=== PATIENT | male | born 1985 | race Caucasian/White ===

== ENCOUNTER 2017-04-13 16:26 | Emergency (ER) | payer SELFPAY ==
[2017-04-13 16:42] VITALS: BP 132/83
--- NOTE | 2017-04-13 18:07 | EDM.PDOC ---
ED HPI GENERAL MEDICAL PROBLEM - General Chief Complaint: ENT Problem Stated Complaint: SEVERE TOOTH PAIN Time Seen by Provider: 04/13/17 18:01 Source of Information: Reports: Patient History Limitations: Reports: No Limitations - History of Present Illness INITIAL COMMENTS - FREE TEXT/NARRATIVE: 32-year-old male in for dental pain on the left maxilla. This is a chronic recurring problem for him, he has a dental evaluation and is going to have it taken care of in 3 weeks when he gets a paycheck to pay for his out standing bill. He is currently on amoxicillin and taking Tylenol 3 as needed but not getting a lot of relief. No fevers, no swelling. I reviewed his history on the [employer], it does correlate with his own history per the patient. He has recently started a [employer] job where he is making good money and he can finally get this taken care of. He was told by the dentist to come to the emergency room for stronger pain medicine. Onset: Other (This problem has been present for months, waxes and wanes) - Related Data Allergies Allergy/AdvReac Type Severity Reaction Status Date / Time No Known Allergies Allergy Verified 04/13/17 17:06 Home Meds: Home Meds Acetaminophen [Tylenol] 650 mg PO ASDIRECTED 06/03/16 [History] Ibuprofen 400 mg PO TID 06/03/16 [History] traMADol [Ultram] 1 tab PO ASDIRECTED 08/31/16 [History] Acetaminophen with Codeine [Tylenol with Codeine #3 Tablet] 1 tab PO QID [History] Amoxicillin 500 mg PO BID 04/13/17 [History] Past Medical History - Past Health History Medical/Surgical History: Denies Medical/Surgical History - Infectious Disease History Infectious Disease History: Reports: Chicken Pox Social & Family History - Tobacco Use Smoking Status *Q: Current Some Day Smoker Years of Tobacco use: 0 Packs/Tins Daily: 0 Used Tobacco, but Quit: No Second Hand Smoke Exposure: No - Alcohol Use Days Per Week of Alcohol Use: 0 - Recreational Drug Use Recreational Drug Use: No ED ROS ENT - Review of Systems Review Of Systems: See Below Constitutional: Denies: Fever HEENT: Reports: Dental Pain Respiratory: Denies: Shortness of Breath GI/Abdominal: Denies: Nausea, Vomiting Neurological: Reports: No Symptoms Psychiatric: Reports: No Symptoms ED EXAM, ENT - Physical Exam Exam: See Below Exam Limited By: No Limitations General Appearance: Alert, No Apparent Distress (Patient looks uncomfortable but not distressed) Mouth/Throat: Other (He has a deep caries between the second and third molar of the left maxilla, it is tender to percussion but no significant inflammation is present) Respiratory/Chest: No Respiratory Distress Neurological: Alert, Oriented Psychiatric: Flat Affect Skin: Warm, Dry Course - Vital Signs Last Recorded V/S: Last Vital Signs Temp 98.2 F 04/13/17 17:10 Pulse 71 04/13/17 17:10 Resp 16 04/13/17 17:10 BP 132/83 04/13/17 17:10 Pulse Ox 98 04/13/17 17:10 - Re-Assessments/Exams Free Text/Narrative Re-Assessment/Exam: 04/13/17 18:20 Had a long discussion with the patient about treatment and expectations. He has several days of amoxicillin left, I'm going to provide 10 more additional days of penicillin so he remains covered until his appointment. We are also going to try a tapering prednisone course starting with 40 mg daily, and I gave him 20 hydrocodone to use for breakthrough pain. He understands he needs to make this last if possible to his appointment. Departure - Departure Time of Disposition: 18:39 Disposition: Home, Self-Care 01 Condition: Good Clinical Impression: Chronic dental pain - Discharge Information Instructions: Dental Caries, [id number] Referrals: PCP,None [Primary Care Provider] - Forms: ED Department Discharge Care Plan Goals: Take prednisone as prescribed once daily with your first meal of the day. Continue antibiotics and use hydrocodone for breakthrough significant pain if needed. Do not take Tylenol with codeine and hydrocodone together. You can continue with anti-inflammatories such as ibuprofen or naproxen, it should help.
== END 2017-04-13 18:52 | disposition home or self-care (01) ==
LOC: JP.ED 16:26
DX: K08.89 Other specified disorders of teeth and supporting structures (principal); G89.29 Other chronic pain; F17.200 Nicotine dependence, unspecified, uncomplicated; Z79.899 Other long term (current) drug therapy
CPT/HCPCS: 99283

== ENCOUNTER 2017-05-17 22:00 | Emergency (ER) | payer SELFPAY ==
[2017-05-18 00:01] VITALS: BP 142/78
--- NOTE | 2017-05-18 00:16 | EDM.PDOC ---
ED HPI GENERAL MEDICAL PROBLEM - General Chief Complaint: ENT Problem Stated Complaint: TOOTHACHE Time Seen by Provider: 05/17/17 23:59 Source of Information: Reports: Patient, Old Records, RN Notes Reviewed History Limitations: Reports: No Limitations - History of Present Illness INITIAL COMMENTS - FREE TEXT/NARRATIVE: Chief complaint Dental pain 32-year-old male who's had a total pain left upper molar for several months. He has an extraction scheduled for June 01 Pain is bothering him again tonight so he is coming in seeking pain medication Multiple visits to emergency for the same Treatments [employer]ELOPER: Reports: Acetaminophen, Other (see below) Other Treatments [employer] DEVELOPER: Ibuprofen Left Oral/Mouth Pain Score (Numeric/FACES): 9 - Related Data Allergies Allergy/AdvReac Type Severity Reaction Status Date / Time No Known Allergies Allergy Verified 05/17/17 23:57 Home Meds: Home Meds Acetaminophen [Tylenol] 650 mg PO ASDIRECTED 06/03/16 [History] Ibuprofen 400 mg PO TID 06/03/16 [History] Amoxicillin 500 mg PO BID 04/13/17 [History] Hydrocodone/Acetaminophen [Hydrocodon-Acetaminophen 5-325] 1 - 2 each PO QID PRN #12 tablet 05/18/17 [Rx] Past Medical History - Past Health History Medical/Surgical History: Denies Medical/Surgical History HEENT History: Reports: Other (See Below) Other HEENT History: chronic dental issues - Infectious Disease History Infectious Disease History: Reports: Chicken Pox Social & Family History - Tobacco Use Smoking Status *Q: Current Every Day Smoker Years of Tobacco use: 5 Packs/Tins Daily: 0.1 Used Tobacco, but Quit: No Second Hand Smoke Exposure: No - Caffeine Use Caffeine Use: Reports: Coffee - Alcohol Use Days Per Week of Alcohol Use: 0 - Recreational Drug Use Recreational Drug Use: No - Living Situation & Occupation Social History Comment: Going through divorce at present time ED ROS ENT - Review of Systems Review Of Systems: ROS reveals no pertinent complaints other than HPI. Constitutional: Denies: Fever HEENT: Reports: Dental Pain ED EXAM, ENT - Physical Exam Exam: See Below Exam Limited By: No Limitations General Appearance: Alert, Mild Distress Eye Exam: Bilateral Eye: Normal Inspection Ears: Normal External Exam Nose: Normal Inspection Mouth/Throat: Dental Tenderness (Left upper first molar) Head: Atraumatic Neurological: Alert, Oriented Lymphatic: No Adenopathy Course - Vital Signs Text/Narrative:: 32-year-old male with ongoing dental pain Has been on several prescriptions of pain medication and antibiotics Declines dental anesthesia at this time Last Recorded V/S: Last Vital Signs Temp 36.0 C 05/17/17 23:58 Pulse 59 L 05/17/17 23:58 Resp 16 05/17/17 23:58 BP 142/78 H 05/17/17 23:58 Pulse Ox 99 05/17/17 23:58 Departure - Departure Time of Disposition: 00:16 Disposition: Home, Self-Care 01 Condition: Fair Clinical Impression: Chronic dental infection - Discharge Information Prescriptions: Hydrocodone/Acetaminophen [Hydrocodon-Acetaminophen 5-325] 1 - 2 each PO QID PRN #12 tablet PRN Reason: Moderate to severe pain Instructions: Dental Abscess Referrals: PCP,None [Primary Care Provider] - Forms: ED Department Discharge Additional Instructions: Follow-up with dentist as arranged
== END 2017-05-18 00:32 | disposition home or self-care (01) ==
LOC: JP.ED 22:00
DX: K04.7 Periapical abscess without sinus (principal); F17.210 Nicotine dependence, cigarettes, uncomplicated
CPT/HCPCS: 99282; 99283

== ENCOUNTER 2017-05-18 14:41 | Emergency (ER) | payer SELFPAY ==
[2017-05-18 14:54] VITALS: BP 148/90
[2017-05-18] MEDS ORDERED: methylPREDNISolone Sodium Succinate 125 MG/2 ML SDV IM ONE (15:26)
[2017-05-18] MEDS ORDERED: diphenhydrAMINE 50 MG/ML SDV IM ONE (15:27)
--- NOTE | 2017-05-18 15:35 | EDM.PDOC ---
ED HPI GENERAL MEDICAL PROBLEM - General Chief Complaint: Bite:Animal, Insect Stated Complaint: BEE STING RT HAND Time Seen by Provider: 05/18/17 15:27 Source of Information: Reports: Patient History Limitations: Reports: No Limitations - History of Present Illness INITIAL COMMENTS - FREE TEXT/NARRATIVE: pt was stung by a bee on the rt hand and he is not feeling well. He has not been stung in the past. Onset: Today Duration: Hour(s):, Other (pt was stung on the rt hand and is having uncomfortabl pain in the hand. He feels strange like he is having a reaction. ) Location: Reports: Upper Extremity, Right Associated Symptoms: Reports: No Other Symptoms, Other (pt states he just feels strange. ) Right Hand Pain Score (Numeric/FACES): 7 - Related Data Allergies Allergy/AdvReac Type Severity Reaction Status Date / Time No Known Allergies Allergy Verified 05/17/17 23:57 Home Meds: Home Meds Acetaminophen [Tylenol] 650 mg PO ASDIRECTED 06/03/16 [History] Ibuprofen 400 mg PO TID 06/03/16 [History] Hydrocodone/Acetaminophen [Hydrocodon-Acetaminophen 5-325] 1 - 2 each PO QID PRN #12 tablet 05/18/17 [Rx] Past Medical History - Past Health History Medical/Surgical History: Denies Medical/Surgical History HEENT History: Reports: Other (See Below) Other HEENT History: chronic dental issues - Infectious Disease History Infectious Disease History: Reports: Chicken Pox Social & Family History - Tobacco Use Smoking Status *Q: Current Every Day Smoker Years of Tobacco use: 5 Packs/Tins Daily: 0.1 Used Tobacco, but Quit: No Second Hand Smoke Exposure: No - Caffeine Use Caffeine Use: Reports: Coffee - Alcohol Use Days Per Week of Alcohol Use: 0 - Recreational Drug Use Recreational Drug Use: No ED ROS GENERAL - Review of Systems Review Of Systems: See Below Constitutional: Reports: No Symptoms HEENT: Reports: No Symptoms Respiratory: Reports: No Symptoms Cardiovascular: Reports: No Symptoms, Palpitations GI/Abdominal: Reports: No Symptoms : Reports: No Symptoms Neurological: Reports: Other ( feels dizzy and strange since this happened. ) ED EXAM, ANIMAL BITE - Physical Exam Exam: See Below Text/Narrative:: pt has a bee sting on his rt hand and he is having a stinging sensation going up the arm some. Exam Limited By: No Limitations General Appearance: Alert, Anxious, Mild Distress Ears: Normal TMs Nose: Normal Inspection Throat/Mouth: Normal Inspection Head: Atraumatic Neck: Normal Inspection Respiratory/Chest: No Respiratory Distress Cardiovascular: Regular Rate, Rhythm Peripheral Pulses: 0: Brachial (L) Extremities: Other (pt has a sting on his rt hand., He has no hives he has no resp distress. He is complaining of pain in the rt hand traveling up his arm. He states he feels strange. ) Course - Vital Signs Last Recorded V/S: Last Vital Signs Temp 36.9 C 05/18/17 14:53 Pulse 82 05/18/17 14:53 Resp 18 05/18/17 14:53 BP 148/90 H 05/18/17 14:53 Pulse Ox 97 05/18/17 14:53 - Orders/Labs/Meds Meds: Medications Discontinued Medications Generic Name Dose Route Start Last Admin Trade Name Ever PRN Reason Stop Dose Admin Diphenhydramine HCl 50 mg 05/18/17 15:27 05/18/17 15:36 Benadryl IM 05/18/17 15:28 50 mg ONETIME ONE Administration Methylprednisolone Sodium Succinate 125 mg 05/18/17 15:26 05/18/17 15:36 Solu-Medrol IM 05/18/17 15:27 125 mg ONETIME ONE Administration - Re-Assessments/Exams Free Text/Narrative Re-Assessment/Exam: 05/18/17 16:07 Pt was given benadryl 50mg im and solumedrol 125 im. Departure - Departure Time of Disposition: 15:58 Disposition: Home, Self-Care 01 Condition: Fair Clinical Impression: Bee sting reaction - Discharge Information Referrals: PCP,None [Primary Care Provider] - Forms: ED Department Discharge Care Plan Goals: cool pack the hand, benadryl 50mg td for the next 24 hours,
== END 2017-05-18 16:09 | disposition home or self-care (01) ==
LOC: JP.ED 14:41
DX: T63.441A Toxic effect of venom of bees, accidental (unintentional), initial encounter (principal); F17.210 Nicotine dependence, cigarettes, uncomplicated
CPT/HCPCS: 96372; 99283; J1200; J2930

== ENCOUNTER 2018-02-03 09:03 | Emergency (ER) | payer SELFPAY ==
[2018-02-03 09:18] VITALS: BP 147/95
[2018-02-03] MEDS ORDERED: Ketorolac 60 MG/2 ML SDV IM ONE (09:53)
--- NOTE | 2018-02-03 09:56 | EDM.PDOC ---
ED HPI GENERAL MEDICAL PROBLEM - General Chief Complaint: Upper Extremity Injury/Pain Stated Complaint: LT SHOULDER PAIN Time Seen by Provider: 02/03/18 09:56 Source of Information: Reports: Patient History Limitations: Reports: No Limitations - History of Present Illness INITIAL COMMENTS - FREE TEXT/NARRATIVE: pt arrived with pain the left shoulder and he is having trouble lifting his arm. Onset: Gradual, Other ( This has been going on for at least 1 week. ) Duration: Hour(s):, Day(s): Location: Reports: Upper Extremity, Left Associated Symptoms: Reports: No Other Symptoms Left Shoulder Pain Score (Numeric/FACES): 8 - Related Data Allergies Allergy/AdvReac Type Severity Reaction Status Date / Time No Known Allergies Allergy Verified 05/17/17 23:57 Home Meds: Home Meds Acetaminophen [Tylenol] 650 mg PO ASDIRECTED 06/03/16 [History] Ibuprofen 400 mg PO TID 06/03/16 [History] Hydrocodone/Acetaminophen [Hydrocodon-Acetaminophen 5-325] 1 - 2 each PO QID PRN #12 tablet 05/18/17 [Rx] Past Medical History - Past Health History Medical/Surgical History: Denies Medical/Surgical History HEENT History: Reports: Other (See Below) Other HEENT History: chronic dental issues - Infectious Disease History Infectious Disease History: Reports: Chicken Pox Social & Family History - Tobacco Use Smoking Status *Q: Current Every Day Smoker Years of Tobacco use: 5 Packs/Tins Daily: 0.1 Used Tobacco, but Quit: No Second Hand Smoke Exposure: No - Caffeine Use Caffeine Use: Reports: Coffee - Alcohol Use Days Per Week of Alcohol Use: 0 - Recreational Drug Use Recreational Drug Use: No Review of Systems - Review of Systems Review Of Systems: See Below Eyes: Reports: No Symptoms Ears: Reports: No Symptoms Nose: Reports: No Symptoms Mouth/Throat: Reports: No Symptoms Respiratory: Reports: No Symptoms Cardiovascular: Reports: No Symptoms GI/Abdominal: Reports: No Symptoms Genitourinary: Reports: No Symptoms Musculoskeletal: Reports: Shoulder Pain (pt has pain in the left shouldwer and is having alot of discomfort when he does go to lift the arm/ ), Other ED EXAM, GENERAL - Physical Exam Exam: See Below Free Text/Narrative:: Pt has pain in the left shoulder. He did not injure it. This just came on . He is having difficulty lifting his arm. Exam Limited By: No Limitations General Appearance: Alert Extremities: Normal Inspection, Other (pt is tender to elevate the arm. He may be over protecting the shoulder. ) Course - Vital Signs Last Recorded V/S: Last Vital Signs Temp 36.6 C 02/03/18 09:16 Pulse 120 H 02/03/18 09:16 Resp 18 02/03/18 09:16 BP 147/95 H 02/03/18 09:16 Pulse Ox 99 02/03/18 09:16 - Orders/Labs/Meds Meds: Medications Discontinued Medications Generic Name Dose Route Start Last Admin Trade Name Ever PRN Reason Stop Dose Admin Ketorolac Tromethamine 60 mg 02/03/18 09:53 02/03/18 10:08 Toradol IM 02/03/18 09:54 60 mg ONETIME ONE Administration - Re-Assessments/Exams Free Text/Narrative Re-Assessment/Exam: 02/03/18 10:58 xray was obtained which did not reveal any sig abnormalities. He was given torodol 60mg im. Departure - Departure Time of Disposition: 10:47 Disposition: Home, Self-Care 01 Condition: Fair Clinical Impression: Tendonitis of shoulder, left - Discharge Information Instructions: Tendinitis Referrals: Tiffany Oseguera PA [Primary Care Provider] - Forms: ED Department Discharge Care Plan Goals: moist warm packs to the shoulder, do range of motion, ortho referal for next few days, naprosyn 500mg tid unti he sees ortho. pt did leave without getting instructions will call regarding the appt and perscription
--- NOTE | 2018-02-03 10:41 | CR ---
Shoulder Comp Lt HISTORY: Pain COMPARISON: None FINDINGS: No fracture or dislocation. No acute bony changes.
== END 2018-02-03 11:05 | disposition home or self-care (01) ==
LOC: JP.ED 09:03
DX: M75.22 Bicipital tendinitis, left shoulder (principal); F17.210 Nicotine dependence, cigarettes, uncomplicated
CPT/HCPCS: 73030; 96372; 99284; J1885

== ENCOUNTER 2019-04-14 18:16 | Emergency (ER) | payer SELFPAY ==
[2019-04-14 18:34] VITALS: BP 133/79
--- NOTE | 2019-04-14 18:56 | EDM.PDOC ---
ED HPI GENERAL MEDICAL PROBLEM - General Chief Complaint: ENT Problem Stated Complaint: NEEDS REFERRAL/TOOTH Time Seen by Provider: 04/14/19 18:24 Source of Information: Reports: Patient, RN Notes Reviewed History Limitations: Reports: No Limitations - History of Present Illness INITIAL COMMENTS - FREE TEXT/NARRATIVE: 34-year-old gentleman presents to the emergency department today with complaint of dental pain, he does have a fractured tooth and has been draining foul smelling material as well as tasting he has felt feverish at home is asking for referral to [facility] [place] [facility] Left Upper Tooth/Teeth Pain Score (Numeric/FACES): 5 - Related Data Allergies Allergy/AdvReac Type Severity Reaction Status Date / Time No Known Allergies Allergy Verified 04/14/19 18:41 Home Meds: Home Meds NK [No Known Home Meds] 02/03/18 [History] Past Medical History HEENT History: Reports: Other (See Below) Other HEENT History: chronic dental issues - Infectious Disease History Infectious Disease History: Reports: Chicken Pox - Past Surgical History Head Surgeries/Procedures: Reports: None HEENT Surgical History: Reports: None Dermatological Surgical History: Reports: None Social & Family History - Tobacco Use Smoking Status *Q: Current Every Day Smoker Years of Tobacco use: 15 Packs/Tins Daily: 0.2 Used Tobacco, but Quit: No - Caffeine Use Caffeine Use: Reports: Coffee, Energy Drinks, Soda - Recreational Drug Use Recreational Drug Use: No ED ROS ENT - Review of Systems Review Of Systems: See Below Constitutional: Reports: Fever HEENT: Reports: Dental Pain Respiratory: Reports: No Symptoms Cardiovascular: Reports: No Symptoms GI/Abdominal: Reports: No Symptoms ED EXAM, ENT - Physical Exam Exam: See Below Text/Narrative:: Mouth mucosa is moist and pink no erythema or exudate noted soft palate tongue is midline uvula is midline, tooth #15 is fractured is tender to palpation around that area Exam Limited By: No Limitations General Appearance: Alert, WD/WN, No Apparent Distress Respiratory/Chest: No Respiratory Distress Course - Vital Signs Last Recorded V/S: Last Vital Signs Temp 97.1 F 04/14/19 18:42 Pulse 60 04/14/19 18:42 Resp 16 04/14/19 18:42 BP 133/79 04/14/19 18:42 Pulse Ox 99 04/14/19 18:42 Departure - Departure Time of Disposition: 18:56 Disposition: Home, Self-Care 01 Condition: Fair Clinical Impression: Dental abscess - Discharge Information Referrals: PCP,None [Primary Care Provider] - Additional Instructions: Take full course of antibiotics use hydrocodone as needed for breakthrough pain use ibuprofen for baseline pain control, please report to the dental clinic at 8 :15 Wednesday morning - Assessment/Plan Plan: Assessment Acuity = acute Site and laterality = dental abscess tooth #15 Etiology = dental caries and bacteria Manifestations = fevers Location of injury = Home Lab values = none Plan Prescription written for amoxicillin 500 mg by mouth 3 times a day, also hydrocodone 5/325 one tablet by mouth 3 times a day when necessary total #12 dental referral was set up for April 17Wednesday at 815 This note was dictated using [employer] voice recognition software please call with any questions on syntax or grammar.
== END 2019-04-14 19:03 | disposition home or self-care (01) ==
LOC: JP.ED 18:16
DX: K04.7 Periapical abscess without sinus (principal); F17.210 Nicotine dependence, cigarettes, uncomplicated
CPT/HCPCS: 99282

== ENCOUNTER 2019-07-15 17:36 | Emergency (ER) | payer SELFPAY ==
[2019-07-15 18:20] VITALS: BP 163/93; PULSE 110
[2019-07-15] MEDS ORDERED: Bupivacaine 0.5%/EPINEPHrine 1:200,000 1.8 ML Cartridge INJECT ONE (18:22)
--- NOTE | 2019-07-15 18:37 | EDM.PDOC ---
ED HPI GENERAL MEDICAL PROBLEM - General Chief Complaint: ENT Problem Stated Complaint: EAR ACHE Time Seen by Provider: 07/15/19 18:15 Source of Information: Reports: Patient History Limitations: Reports: No Limitations - History of Present Illness INITIAL COMMENTS - FREE TEXT/NARRATIVE: Saul is a 34 year old male who presents to the ED today with c/o left upper dental pain radiating to left ear, thinks he has an ear infection, hx of dental abscesses in the past. Ibuprofen not helping the pain, c/o fever, nausea. No recent antibiotics, reports he needs thousands of dollars of dental work done. Onset: Today, Gradual Duration: Day(s): (2) Left Face/Facial Pain Score (Numeric/FACES): 8 - Related Data Allergies Allergy/AdvReac Type Severity Reaction Status Date / Time No Known Allergies Allergy Verified 07/15/19 18:29 Home Meds: Home Meds NK [No Known Home Meds] 02/03/18 [History] Past Medical History - Past Health History Medical/Surgical History: Denies Medical/Surgical History HEENT History: Reports: Other (See Below) Other HEENT History: chronic dental issues - Infectious Disease History Infectious Disease History: Reports: Chicken Pox - Past Surgical History Head Surgeries/Procedures: Reports: None HEENT Surgical History: Reports: None Dermatological Surgical History: Reports: None Social & Family History - Tobacco Use Smoking Status *Q: Former Smoker Used Tobacco, but Quit: No Month/Year Tobacco Last Used: 0 - Caffeine Use Caffeine Use: Reports: Coffee, Energy Drinks, Soda - Recreational Drug Use Recreational Drug Use: No ED ROS ENT - Review of Systems Review Of Systems: ROS reveals no pertinent complaints other than HPI. ED EXAM, ENT - Physical Exam Exam: See Below Exam Limited By: No Limitations General Appearance: Alert, WD/WN, Mild Distress Eye Exam: Bilateral Eye: EOMI, PERRL Ears: Normal External Exam, Normal Canal, Normal TMs Mouth/Throat: Other (Broken back upper left molar, no fluctuant abscess identified, no micky's angina. No trismus) Head: Atraumatic Neck: Normal Inspection, Supple, Non-Tender. No: Lymphadenopathy (R), Lymphadenopathy (L) Respiratory/Chest: No Respiratory Distress, Lungs Clear Cardiovascular: Tachycardia Extremities: Normal Inspection Neurological: Alert, Oriented Psychiatric: Normal Affect, Normal Mood, Other (appears uncomfortable) Skin: Warm, Dry, Intact Lymphatic: No Adenopathy Course - Vital Signs Last Recorded V/S: Last Vital Signs Temp 37.1 C 07/15/19 18:28 Pulse 110 H 07/15/19 18:28 Resp 14 07/15/19 18:28 BP 163/93 H 07/15/19 18:28 Pulse Ox 100 07/15/19 18:28 Saul is a 34 year old male who presents to the ED today with c/o left ear pain and dental pain, please refer to HPI and focused exam. Patient arrives here mildly tachycardic, hypertensive, moaning in pain. Ear exam unremarkable , likely radiating pain from dental abscess from tooth # 15 which is TTP, surrounding gum is slightly swollen and injected, no definable abscess, trismus or micky's angina. Patient given a dental block with marcaine after obtaining verbal consent, tolerated well with good relief. WIll start patient on amoxicillin for dental abscess, ibuprofen for pain, percocet for severe pain, dentistry follow up this next week. Reasons to return discussed, patient agreeable to plan of care and discharged in stable condition. - Orders/Labs/Meds Meds: Medications Discontinued Medications Generic Name Dose Route Start Last Admin Trade Name Ever PRN Reason Stop Dose Admin Bupivacaine HCl/Epinephrine Bitart 1.8 ml 07/15/19 18:22 07/15/19 18:28 Marcaine 0.5%/Epinephrine 1:200,000 INJECT 07/15/19 18:23 1.8 ml ONETIME ONE Administration Departure - Departure Time of Disposition: 19:00 Disposition: Home, Self-Care 01 Condition: Good Clinical Impression: Dental abscess - Discharge Information Instructions: Dental Abscess, [id number] Referrals: Tiffany Oseguera PA [Primary Care Provider] - Additional Instructions: Ibuprofen 600 mg every 6 hours for pain/inflammation Percocet as prescribed for severe pain, do not drive or drink ETOH if you take this. Start Amoxicillin tonight. Follow up with Dentist this next week. Return with any worsening complications or concerns. Hope you feel better soon.
== END 2019-07-15 18:49 | disposition home or self-care (01) ==
LOC: JP.ED 17:36
DX: K04.7 Periapical abscess without sinus (principal); Z87.891 Personal history of nicotine dependence
CPT/HCPCS: 64400; 99283; J3490; 99282